=== PATIENT | female | born 2000 | race American Indian/Alaskan Native ===

== ENCOUNTER 2019-04-02 00:35 | Emergency (ER) | payer BC ==
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
--- NOTE | 2019-04-02 06:17 | Emergency Department Report ---
ED General Adult HPI - General Chief complaint: Chest Pain Stated complaint: CHEST PAIN Source: patient Mode of arrival: Ambulatory Limitations: No Limitations - History of Present Illness Initial comments: Patient is a nulliparous 18-year-old -[place] female with no past medical history presents to the ED with complaint of acute onset persistent nontraumatic left breast pain for the last 1 week. Patient denies fever, chills, nausea, vomiting, chest pain, shortness of breath, abdominal pain, traumatic injury, dizziness, headache, fall or heavy lifting. Patient's LMP was 03/11/2019. MD Complaint: LEFT BREAST PAIN -: Sudden, days(s), week(s) (1) Location: chest (Left breast pain) Radiation: non-radiation Severity scale (0 -10): 4 Quality: aching, sharp Consistency: constant Improves with: none Worsens with: none Associated Symptoms: denies other symptoms. denies: confusion, chest pain, cough, diaphoresis, fever/chills, headaches, loss of appetite, malaise, nausea/vomiting, shortness of breath Treatments Prior to Arrival: none - Related Data Previous Rx's Medication Instructions Recorded Last Taken Type Acetaminophen/Codeine [Tylenol #3] 1 tab PO QHS PRN #15 tab 11/28/14 Unknown Rx methOCARBAMOL [Robaxin TAB] 500 mg PO BID PRN #14 tab 11/28/14 Unknown Rx Allergies Allergy/AdvReac Type Severity Reaction Status Date / Time No Known Allergies Allergy Verified 11/28/14 17:26 ED Review of Systems ROS: Stated complaint: CHEST PAIN Other details as noted in HPI Constitutional: denies: chills, fever Eyes: denies: eye pain, eye discharge, vision change ENT: denies: ear pain, throat pain Respiratory: other (left breast pain). denies: cough, shortness of breath, wheezing Cardiovascular: denies: chest pain, palpitations Endocrine: no symptoms reported Gastrointestinal: denies: abdominal pain, nausea, diarrhea Genitourinary: denies: urgency, dysuria, discharge Musculoskeletal: denies: back pain, joint swelling, arthralgia Skin: denies: rash, lesions Neurological: denies: headache, weakness, paresthesias Psychiatric: denies: anxiety, depression Hematological/Lymphatic: denies: easy bleeding, easy bruising ED Past Medical Hx - Past Medical History Previous Medical History?: No - Surgical History Past Surgical History?: No - Social History Smoking Status: Never Smoker Substance Use Type: None - Medications Home Medications: Home Medications Medication Instructions Recorded Confirmed Last Taken Type Acetaminophen/Codeine [Tylenol #3] 1 tab PO QHS PRN #15 tab 11/28/14 Unknown Rx methOCARBAMOL [Robaxin TAB] 500 mg PO BID PRN #14 tab 11/28/14 Unknown Rx ED Physical Exam - General Limitations: No Limitations General appearance: alert, in no apparent distress - Head Head exam: Present: atraumatic, normocephalic, normal inspection - Eye Eye exam: Present: normal appearance, PERRL, EOMI Pupils: Present: normal accommodation - ENT ENT exam: Present: normal exam, normal orophraynx, mucous membranes moist, TM's normal bilaterally, normal external ear exam - Neck Neck exam: Present: normal inspection, full ROM - Respiratory Respiratory exam: Present: normal lung sounds bilaterally, chest wall tenderness (Palpable left breast tenderness diffusely; no masses or rashes), other (Female RN Procurement Cost Coordinator, Ms Deedee present during breast exam). Absent: respiratory distress, wheezes, rales, rhonchi, stridor, accessory muscle use, decreased breath sounds, prolonged expiratory - Cardiovascular Cardiovascular Exam: Present: regular rate, normal rhythm, normal heart sounds. Absent: systolic murmur, diastolic murmur, rubs, gallop - GI/Abdominal GI/Abdominal exam: Present: soft, normal bowel sounds. Absent: tenderness, guarding, rebound, hyperactive bowel sounds, hypoactive bowel sounds - Extremities Exam Extremities exam: Present: normal inspection, full ROM, normal capillary refill - Back Exam Back exam: Present: normal inspection, full ROM. Absent: tenderness, CVA tenderness (R), CVA tenderness (L), muscle spasm, paraspinal tenderness - Neurological Exam Neurological exam: Present: alert, oriented X3, CN II-XII intact, normal gait, reflexes normal - Psychiatric Psychiatric exam: Present: normal affect, normal mood - Skin Skin exam: Present: warm, dry, intact, normal color. Absent: rash ED Course Vital Signs 04/02/19 00:44 Temperature 99.3 F Pulse Rate 84 Respiratory 20 Rate Blood Pressure 109/64 O2 Sat by Pulse 99 Oximetry ED Medical Decision Making - Medical Decision Making This is a nulliparous 18-year-old -[place] female who presents to the ED with complaint of nontraumatic left breast pain for 1 week. In the ED, patient is alert and oriented 3 and is not in distress. Physical exam accompanied by a female RN harness cutter Ms Deedee, shows a palpable left breast tenderness, with no masses or rashes. Patient was examined findings and the patient's history, and the stage of her ovulation, patient's symptoms are likely due to fibrocystic breast changes and pain. Patient was advised to take [id number] ibuprofen or naproxen for pain as needed and follow-up with [facility] physician in 5-7 days for reevaluation. Patient was advised to return to the ED immediately if symptoms get worse. Patient however signed out AMA without waiting for the discharge paperwork. - Differential Diagnosis fibrocystic breast changes; Fibrocystic breast disease; Mastalgia Critical care attestation.: If time is entered above; I have spent that time in minutes in the direct care of this critically ill patient, excluding procedure time. ED Disposition Clinical Impression: Mastalgia in female Fibrocystic breast changes Qualifiers: Laterality: left Qualified Code(s): N60.12 - Diffuse cystic mastopathy of left breast Disposition: DC-07 LEFT AGAINST MED ADVICE Is pt being admited?: No Does the pt Need Aspirin: No Condition: Stable Referrals: PRIMARY CARE, [Primary Care Provider] - 3-5 Days Forms: AMA Form Time of Disposition: 05:15 Print Language: PASHTO
[2019-04-02 06:32] VITALS: BP 116/76
[2019-04-02 09:30] LABS: Bacteria,Urine 1+ /HPF (Negative); Bilirubin,Urine NEG (Negative); Blood,Urine NEG (Negative); Color,Urine Yellow (Yellow); Mucus,Urine FEW /HPF; Protein,Urine <15 mg/dL mg/dL (Negative); Urobilinogen,Urine < 2.0 mg/dL (<2.0)
[2019-04-02 09:31] LABS: HCG Qualitative,Urine Negative (Negative)
== END 2019-04-02 05:30 | disposition left against medical advice (07) ==
LOC: ED 00:35
DX: N60.12 Diffuse cystic mastopathy of left breast (principal)
CPT/HCPCS: 71046; 81001; 81025; 93005; 93010